=== PATIENT | female | born 1975 | race Asian ===

== ENCOUNTER → 2019-11-17 15:25 | Outpatient (CLI) | payer OTHER, SELFPAY ==
--- NOTE | 2019-11-17 | DI.MRI.S_ITS ---
PROCEDURE: MR LUMBAR SPINE WO CON INDICATIONS: Dorsalgia, unspecified TECHNIQUE: Noncontrast sagittal T1 spin echo and T2 fast echo, sagittal STIR, axial T1 and T2 fast spin echo through the lumbar spine. In cases with scoliosis, additional coronal T2 fast spin echo may be performed. COMPARISON: [facility] Outside Film, CR, XR LUMBAR SPINE 2 OR 3 VIEWS, 09/26/2019, 11:53. FINDINGS: Image quality: Diagnostic, with note made of motion artifact. Alignment and Curvature: There is normal bony alignment. Bone Marrow: Marrow is of normal overall signal. No acute vertebral body compression fractures. Spinal Cord: Conus medullaris terminates at the L1-L2 level. Visualized cord demonstrates normal signal and size. Paraspinous Soft Tissues: No paravertebral masses. T12-L1: Normal appearance. L1-L2: Normal appearance. L2-L3: Normal appearance. L3-L4: The disc height and disk signal are well-preserved. Mild generalized disc bulge is seen. Mild facet joint hypertrophy is seen. No significant neural foraminal or central canal narrowing can be seen. L4-L5: Oihg-wz-xnhuysnd loss of disc height and disc signal can be seen. Moderate disc bulge is seen, with a central disc protrusion. There is a focal annular fissure seen posteriorly. Moderate facet joint hypertrophy is seen. There is moderate right-sided and moderate to severe left-sided neural foraminal narrowing seen. There is a degree of compression seen upon the exiting L4 nerve roots, left worse than right. Mild central canal narrowing is seen. L5-S1: The disc height is well-preserved. Loss of disc signal is seen at this level. Mild to moderate disc bulge is seen. Mild to moderate facet hypertrophy is seen at this level. Moderate bilateral neural foraminal narrowing is seen. No significant central canal narrowing is seen. 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 Dictated by: Antonio Lunsford M.D. on 11/17/2019 at 17:02 Approved by: Antonio Lunsford M.D. on 11/17/2019 at 17:05
== END ==
PROVIDERS: Referring Provider Orthopaedic Surgery Orthopaedic Surgery of the Spine; Visit Provider Orthopaedic Surgery Orthopaedic Surgery of the Spine
DX: M54.9 Dorsalgia, unspecified (principal); M47.816 Spondylosis without myelopathy or radiculopathy, lumbar region
CPT/HCPCS: 72148

== ENCOUNTER → 2021-05-29 15:55 | Outpatient (CLI) | payer OTHER, SELFPAY ==
--- NOTE | 2021-05-29 | DI.ECHO.S_ITS ---
[facility] +---------+ : : [address] : [place] : : : : [id number] : : : : Phone: [phone] Echocardiogram Report + + :Name: SHAYNA PALMER Study Date: 05/29/2021 Height: 63 in : :[facility] ReadingLocation: Weight: 170 lb : : Gender: Female BSA: 1.8 m2 : :: 1975 Age: 45 yrs BP: 120/82 mmHg: :Reason For Study: Chest pain : :Ordering Physician: ESCOBAR, : :NIRAV Performed By: Ancelmo Negrete : :Referring: NIRAV CODY : + + Interpretation Summary Normal sinus rhythm. Normal LV size, wall thickness, wall motion and LV systolic function. EF is 55-60%. Normal chamber sizes. No significant valvular abnormalities. No prior study available for comparison. Procedure: A two-dimensional transthoracic echocardiogram with color flow and Doppler was performed. The study quality was technically adequate. There is no prior echocardiogram noted for this patient. Left Ventricle: The left ventricle is normal in size and wall thickness. Left ventricular systolic function is normal. The ejection fraction is estimated to be 55-60%. There are no focal wall motion abnormalities. Diastolic function could not be accurately assessed due to unobtainable data. Right Ventricle: The right ventricle is normal in size and function. Atria: Both atria are normal in size. The interatrial septum grossly appears intact with no obvious evidence for an atrial septal defect. Mitral Valve: The mitral valve is normal in structure and function. There is trace mitral regurgitation. Aortic Valve: The aortic valve is normal in structure and function. No aortic regurgitation is present. Tricuspid Valve: The tricuspid valve is normal in structure and function. There is trace tricuspid regurgitation. Pulmonary artery pressures cannot be estimated because of the lack of a measurable TR jet velocity. Pulmonic Valve: The pulmonic valve is normal in structure and function. There is mild pulmonic regurgitation. Great Vessels: The aortic root is normal size. The dimensions of the ascending aorta are normal. The IVC is of normal diameter and collapses greater than 50% with a sniff. This suggests a low right atrial pressure of 3 mm Hg. Pericardium/ Pleura There is no pericardial effusion. There is no pleural effusion. MMode/2D Measurements & Calculations LVIDd: 4.2 cm LVOT diam: 2.1 cm LVIDs: 2.8 cm Ao root diam: 2.6 cm FS: 33.3 % asc Aorta Diam: 3.2 cm IVSd: 0.90 cm LVPWd: 0.70 cm LV hathaway. diameter/BSA (cm/m^2): 2.3 LV sys. diameter/BSA (cm/m^2): 1.6 LA dimension: 3.6 cm RA long axis: 4.1 cm LA A2 area: 10.6 cm2 LA A4 area: 11.2 cm2 LA length (vol): 4.6 cm LA vol: 21.9 ml LA vol index: 12.1 ml/m2 TAPSE_phl: 1.6 cm Doppler Measurements & Calculations Ao V2 max: 141.0 cm/sec LVOT Max Doyle: 98.6 cm/sec Ao V2 mean: 101.0 cm/sec LV V1 max P.9 mmHg Ao max P.0 mmHg LV V1 VTI: 21.3 cm Ao mean P.0 mmHg TABBY(I,D): 2.5 cm2 Ao V2 VTI: 29.1 cm TABBY(V,D): 2.4 cm2 sev ratio: 0.73 TABBY indexed to BSA (cm^2/m^2): 1.4 MV E max doyle: 66.4 cm/sec SV(LVOT): 73.8 ml MV A max doyle: 73.7 cm/sec MV E/A: 0.90 Med Peak E' Doyle: 8.7 cm/sec E/E' med: 7.6 Lat Peak E' Doyle: 7.8 cm/sec E/E' lat: 8.5 E/e' average: 8.1 MV dec time: 0.28 sec AV VR_phl: 0.70 MV P1/2t-pr_phl: 81.0 msec TABBY(VTI)/BSA_phl: 1.4 Electronically signed by: Chelle Wilson M.D. on Reading Physician:05/29/2021 10:56 PM
== END ==
PROVIDERS: Referring Provider Physician Assistant Medical; Visit Provider Physician Assistant Medical
DX: R07.9 Chest pain, unspecified (principal); I37.1 Nonrheumatic pulmonary valve insufficiency
CPT/HCPCS: 93306